=== PATIENT | female | born 1990 | race Caucasian/White ===

== ENCOUNTER 2017-10-10 10:30 | Emergency (ER) | payer OTHER ==
[2017-10-10 10:40] LABS: BASOPHIL (%) 0.4 % (0-1); EOSINOPHIL (%) 0.9 % (0-5); EOSINOPHIL COUNT 0.1 K/uL (0-0.3); HEMATOCRIT 41.8 % (36.0-46.0); HEMOGLOBIN 14.2 G/DL (11.9-15.5); IMMATURE GRANULOCYTE (%) 0.5 % (0.0-0.7); MCH 29.7 PG (29.0-34.0); MCV 87.4 FL (83-99); MONOCYTE (%) 5.5 % (3-12); MONOCYTE COUNT 0.5 K/uL (0-0.8); NEUTROPHIL (%) 69.7 % (45-76); NEUTROPHIL COUNT 5.9 K/uL (1.8-6.4); PLATELET COUNT 299 K/uL (156-360); RBC DIS.WIDTH-CV 12.7 % (11.8-14.6); RBC DIS.WIDTH-SD 41.1 % (39-53); RED BLOOD COUNT 4.78 M/uL (3.80-5.20); WHITE BLOOD COUNT 8.5 K/uL (4.1-10.2)
[2017-10-10 10:49] LABS: AMYLASE 33 IU/L (1-118); CHLORIDE 105 mEq/L (99-109); SODIUM 140 mEq/L (136-147)
[2017-10-10 10:51] LABS: GLUCOSE 102 mg/dL (70-99)
[2017-10-10 10:54] LABS: SERUM ETHYL ALCOHOL < 10 mg/dL
[2017-10-10 10:55] LABS: CREATININE 0.9 mg/dL (0.6-1.3)
[2017-10-10 10:56] LABS: GFR ESTIMATE (CALCULATED) > 59 mL/min/; UREA NITROGEN (BUN) 16 mg/dL (9-23)
[2017-10-10 10:58] LABS: LIPASE 9 U/L (1.0-51.0)
[2017-10-10 11:04] LABS: QUANTITATIVE HCG < 4.0 MIU/ML
== END 2017-10-10 12:07 | disposition home or self-care (01) ==
LOC: TRA 10:30
PROVIDERS: Emergency Medicine
DX: S20.229A Contusion of unspecified back wall of thorax, initial encounter (principal); S00.83XA Contusion of other part of head, initial encounter; S60.511A Abrasion of right hand, initial encounter; S70.01XA Contusion of right hip, initial encounter; M54.2 Cervicalgia; R07.9 Chest pain, unspecified; V48.5XXA Car driver injured in noncollision transport accident in traffic accident, initial encounter; Y92.410 Unspecified street and highway as the place of occurrence of the external cause; Z97.5 Presence of (intrauterine) contraceptive device
CPT/HCPCS: 70450; 71250; 72125; 72128; 80048; 81003; 82150; 83690; 84702; 85025; 86850; 86900; 86901; 99281; 99285; G0480